=== PATIENT | female | born 1960 | race Caucasian/White ===

== ENCOUNTER 2022-06-02 13:51 | Emergency (ER) | payer OTHER ==
[~2022-06-02] VITALS: Wt 50.8 kg
[2022-06-02 14:51] LABS: ALKALINE PHOSPHATASE 95 U/L (46-116); BUN 5 mg/dl (9-23); CHLORIDE 101 mmol/L (98-107); LIPASE 28 U/L (12-53); POTASSIUM 3.3 mmol/L (3.4-5.1); TOTAL PROTEIN 7.2 gm/dL (6.0-8.0)
[2022-06-02 14:55] LABS: SGPT/ALT < 7 U/L (10-49)
[2022-06-02 15:30] LABS: HEMATOCRIT 29.3 % (37.0-47.0); MEAN CELL VOLUME 83.2 fl (81.0-99.0); MEAN CORPUSCULAR HGB 27.8 pg (27.0-31.0); MEAN CORPUSCULAR HGB CONC 33.4 g/dl (33.0-37.0); PLATELET COUNT AUTOMATED 137 10*3/uL (130-400); RED BLOOD COUNT 3.52 10*6/uL (4.10-5.10); RED CELL DISTRI WIDTH 16.7 % (0-14.5)
[2022-06-02 15:50] LABS: MANUAL DIFF REFLEX YES
[2022-06-02 16:02] LABS: ATYPICAL LYMPHS 2 % (0-0); BASOPHILS 3 % (0-1); TOTAL CELLS COUNTED 100 #CELLS
[2022-06-02 16:03] LABS: TOXIC GRANULATION SLIGHT
[2022-06-02 16:04] LABS: PLATELET SUFFICIENCY NORMAL (NORMAL)
== END 2022-06-02 18:52 | disposition home or self-care (01) ==
LOC: ED 13:51
PROVIDERS: Emergency Medicine
DX: R04.0 Epistaxis (principal); D70.9 Neutropenia, unspecified; Z98.51 Tubal ligation status

== ENCOUNTER 2023-02-03 12:32 | Emergency (ER) | payer OTHER ==
[~2023-02-03] VITALS: Ht 172.7 cm; Wt 45.8 kg
[2023-02-03 13:20] LABS: BASO # 0.1 10*3/uL (0.0-0.1); BASO % 0.6 % (0.0-1.0); EOS % 0.1 % (1.0-4.0); HEMATOCRIT 36.6 % (37.0-47.0); LYMPH # 0.3 10*3/uL (1.3-4.4); LYMPH % 2.8 % (27.0-41.0); MEAN CELL VOLUME 86.3 fl (81.0-99.0); MEAN CORPUSCULAR HGB 28.3 pg (27.0-31.0); MEAN CORPUSCULAR HGB CONC 32.8 g/dl (33.0-37.0); MEAN PLATELET VOLUME 8.2 fl (9.6-12.3); MONO # 0.7 10*3/uL (0.1-1.0); MONO % 7.1 % (3.0-9.0); NEUT # 8.8 10*3/uL (2.3-7.9); NEUT % 88.7 % (47.0-73.0); PLATELET COUNT AUTOMATED 481 10*3/uL (130-400); RED BLOOD COUNT 4.24 10*6/uL (4.10-5.10); RED CELL DISTRI WIDTH 14.7 % (0-14.5)
[2023-02-03 13:32] LABS: ALKALINE PHOSPHATASE 82 U/L (46-116); BUN 8 mg/dl (9-23); CHLORIDE 98 mmol/L (98-107); POTASSIUM 3.8 mmol/L (3.4-5.1); TOTAL PROTEIN 5.7 gm/dL (6.0-8.0)
[2023-02-03 13:49] LABS: SGPT/ALT < 7 U/L (10-49)
[2023-02-03] MEDS ORDERED: VIBRAMYCIN100 MG PO (15:45)
[2023-02-03] MEDS ORDERED: LEVOFLOXACIN500 MG PO ×2 (15:48)
[2023-02-03] MEDS ORDERED: ONDANSETRON4 MG SL (15:49)
[2023-02-04] MEDS ORDERED: PLAVIX75 M1 PO (04:54)
[2023-02-04] MEDS ORDERED: ELIQUIS5 M1 PO (04:56)
[2023-02-04] MEDS ORDERED: PROTONIX40 MG PO (04:56)
[2023-02-04] MEDS ORDERED: LOVASTATIN40 MG PO (04:57)
[2023-02-04] MEDS ORDERED: NEURONTIN100 MG PO (04:57)
[2023-02-04] MEDS ORDERED: FENOFIBRATE160 MG PO (04:57)
[2023-02-04] MEDS ORDERED: Synthroid,Levo50 MCG PO (04:58)
== END 2023-02-03 16:51 | disposition home or self-care (01) ==
LOC: ED 12:32
PROVIDERS: Nurse Practitioner Family
DX: K59.00 Constipation, unspecified (principal); J18.9 Pneumonia, unspecified organism; E03.9 Hypothyroidism, unspecified; Z98.51 Tubal ligation status; Z98.890 Other specified postprocedural states

== ENCOUNTER 2023-02-04 01:58 | Inpatient (IN) | payer OTHER ==
[~2023-02-04] VITALS: Ht 172.7 cm; Wt 51.7 kg
[~2023-02-04 01:58] MED LIST: LEVOFLOXACIN500 MG PO; ONDANSETRON4 MG SL; VIBRAMYCIN100 MG PO
[2023-02-04 02:07] VITALS: BP 111/68
[2023-02-04 04:20] VITALS: BP 122/82
[2023-02-04] MEDS ORDERED: PLAVIX75 M1 PO (04:54)
[2023-02-04] MEDS ORDERED: ELIQUIS5 M1 PO (04:56)
[2023-02-04] MEDS ORDERED: PROTONIX40 MG PO (04:56)
[2023-02-04] MEDS ORDERED: LOVASTATIN40 MG PO (04:57)
[2023-02-04] MEDS ORDERED: NEURONTIN100 MG PO (04:57)
[2023-02-04] MEDS ORDERED: FENOFIBRATE160 MG PO (04:57)
[2023-02-04] MEDS ORDERED: Synthroid,Levo50 MCG PO (04:58)
[2023-02-04 06:06] LABS: MEAN CELL VOLUME 86.8 fl (81.0-99.0); MEAN CORPUSCULAR HGB CONC 32.3 g/dl (33.0-37.0); MEAN PLATELET VOLUME 8.7 fl (9.6-12.3); PLATELET COUNT AUTOMATED 487 10*3/uL (130-400); RED BLOOD COUNT 4.03 10*6/uL (4.10-5.10); RED CELL DISTRI WIDTH 14.9 % (0-14.5)
[2023-02-04 06:18] LABS: MANUAL DIFF REFLEX YES
[2023-02-04 06:26] LABS: BUN 6 mg/dl (9-23); CHLORIDE 100 mmol/L (98-107); POTASSIUM 4.5 mmol/L (3.4-5.1)
[2023-02-04 06:44] LABS: BASOPHILS 1 % (0-1); TOTAL CELLS COUNTED 100 #CELLS
[2023-02-04 06:45] LABS: PLATELET SUFFICIENCY HIGH (NORMAL)
[2023-02-04 06:46] LABS: BURR CELLS FEW
[2023-02-04 08:00] VITALS: BP 106/67
[2023-02-04 08:57] LABS: CHOLESTEROL 74 mg/dL (<200); TRIGLYCERIDES 185 mg/dl (<150)
[2023-02-04 08:58] LABS: LDL CHOLESTEROL 19 mg/dL (9-159)
[2023-02-04 12:00] VITALS: BP 102/67
[2023-02-04 16:00] VITALS: BP 107/68
[2023-02-04 16:23] LABS: URINE CREATININE RANDOM 111.65 mg/dL
[2023-02-04 20:00] VITALS: BP 106/69
[2023-02-05] VITALS: BP 102/61
[2023-02-05 08:00] VITALS: BP 108/70
[2023-02-05 08:14] LABS: BASO # 0.1 10*3/uL (0.0-0.1); BASO % 0.6 % (0.0-1.0); EOS # 0.1 10*3/uL (0.0-0.4); EOS % 0.7 % (1.0-4.0); HEMATOCRIT 32.6 % (37.0-47.0); LYMPH # 0.2 10*3/uL (1.3-4.4); LYMPH % 2.2 % (27.0-41.0); MEAN CELL VOLUME 87.6 fl (81.0-99.0); MEAN CORPUSCULAR HGB 28.2 pg (27.0-31.0); MEAN CORPUSCULAR HGB CONC 32.2 g/dl (33.0-37.0); MEAN PLATELET VOLUME 8.2 fl (9.6-12.3); MONO # 0.7 10*3/uL (0.1-1.0); MONO % 7.9 % (3.0-9.0); NEUT # 7.6 10*3/uL (2.3-7.9); PLATELET COUNT AUTOMATED 419 10*3/uL (130-400); RED BLOOD COUNT 3.72 10*6/uL (4.10-5.10); RED CELL DISTRI WIDTH 15.3 % (0-14.5); WHITE BLOOD COUNT 8.6 10*3/uL (4.8-10.8)
[2023-02-05 08:49] LABS: BUN 7 mg/dl (9-23); CHLORIDE 104 mmol/L (98-107); CHOLESTEROL 72 mg/dL (<200); FREE T4 0.93 ng/dl (0.89-1.76); LDL CHOLESTEROL 21 mg/dL (9-159); POTASSIUM 3.7 mmol/L (3.4-5.1); TRIGLYCERIDES 169 mg/dl (<150)
[2023-02-05 09:00] LABS: VITAMIN D, 25-HYDROXY 45.2 ng/mL (30-100)
[2023-02-05 12:00] VITALS: BP 117/78
== END 2023-02-05 15:00 | disposition home or self-care (01) | DRG 388 ==
LOC: ED 01:58 → 4E 03:14 → EDHOLD 03:14 → 4E 03:51
PROVIDERS: Student in an Organized Health Care Education/Training Program; ADMIT Internal Medicine; ATTEND Internal Medicine
PROC: 0D9670Z Drainage of Stomach with Drainage Device, Via Natural or Artificial Opening (ICD-10-PCS; principal; 2023-02-04)
DX: K56.7 Ileus, unspecified (principal); E43 Unspecified severe protein-calorie malnutrition; J18.9 Pneumonia, unspecified organism; E87.1 Hypo-osmolality and hyponatremia; C45.1 Mesothelioma of peritoneum; R18.8 Other ascites; Z68.1 Body mass index [BMI] 19.9 or less, adult; I73.9 Peripheral vascular disease, unspecified; Z66 Do not resuscitate; E78.5 Hyperlipidemia, unspecified; E89.0 Postprocedural hypothyroidism; Z82.49 Family history of ischemic heart disease and other diseases of the circulatory system; Z98.51 Tubal ligation status; Z86.718 Personal history of other venous thrombosis and embolism; Z80.1 Family history of malignant neoplasm of trachea, bronchus and lung; D75.839 Thrombocytosis, unspecified; F17.210 Nicotine dependence, cigarettes, uncomplicated; D64.9 Anemia, unspecified; D72.829 Elevated white blood cell count, unspecified